=== PATIENT | male | born 1995 | race American Indian/Alaskan Native ===

== ENCOUNTER 2019-11-25 03:31 | Emergency (ER) | payer OTHER ==
[2019-11-25 04:46] VITALS: BP 157/79
[2019-11-25] MEDS ORDERED: HYDROcodone/ACETAMINOPHEN 10-325MG TAB PO ONE (07:19)
--- NOTE | 2019-11-25 07:33 | Emergency Department Report ---
ED Fall HPI - General Chief Complaint: Fall Stated Complaint: SLIP AND FALL Time Seen by Provider: 11/25/19 07:19 Source: patient Mode of arrival: Ambulatory - History of Present Illness Initial Comments: This is a 24-year-old male nontoxic, well nourished in appearance, no acute signs of distress presents to the ED with c/o of acute headache, neck pain, and bilateral shoulder pain s/p trip and fall that occurred this morning. Patient stated he fell backwards onto his head and neck area and shoulders but denies any other injuries or trauma. Patient that he had a brief loss of consciousness.. Patient describes headache as diffuse with level of 8 out of 10. Patient denies thunderclap headache. Patient denies any radiation of pain. Patient denies any visual changes. Patient denies worse headache. Patient denies any numbness, tingling, fever, chills, nausea, vomiting, chest pain, shortness of breath, stiff neck. Patient denies facial drooping or one sided weakness. Patient denies any radiation of pain. Patient denies any allergies. Patient denies significant past medical history. MD Complaint: fall -: This morning Fall From: standing Place Fall Occurred: work Loss of Consciousness: yes Prolonged Down Time?: no Symptoms Prior to Fall: none Location: head, neck Location - Extremities: Left: Shoulder, Right: Shoulder Severity: mild Severity scale (0 -10): 8 Quality: aching Context: tripped/slipped Associated Symptoms: headache, neck pain. denies: numbness, weakness, chest paint, shortness of breath, abdominal pain, hematuria, unable to walk, lightheaded, vertigo, confusion - Related Data Previous Rx's Medication Instructions Recorded Last Taken Type Acetaminophen/Codeine [Tylenol 1 tab PO Q6H PRN #12 tab 11/25/19 Unknown Rx /Codeine # 3 tab] Allergies Allergy/AdvReac Type Severity Reaction Status Date / Time No Known Allergies Allergy Unverified 11/25/19 04:11 ED Review of Systems ROS: Stated complaint: SLIP AND FALL Other details as noted in HPI Constitutional: denies: chills, fever Eyes: denies: eye pain, eye discharge, vision change ENT: denies: ear pain, throat pain Respiratory: denies: cough, shortness of breath, wheezing Cardiovascular: denies: chest pain, palpitations Endocrine: no symptoms reported Gastrointestinal: denies: abdominal pain, nausea, diarrhea Genitourinary: denies: urgency, dysuria Musculoskeletal: denies: back pain, joint swelling, arthralgia Skin: denies: rash, lesions Neurological: headache. denies: weakness, paresthesias Psychiatric: denies: anxiety, depression Hematological/Lymphatic: denies: easy bleeding, easy bruising ED Past Medical Hx - Past Medical History Previous Medical History?: Yes Hx Asthma: Yes - Surgical History Past Surgical History?: No - Social History Smoking Status: Never Smoker Substance Use Type: None - Medications Home Medications: Home Medications Medication Instructions Recorded Confirmed Last Taken Type Acetaminophen/Codeine [Tylenol 1 tab PO Q6H PRN #12 tab 11/25/19 Unknown Rx /Codeine # 3 tab] ED Physical Exam - General Limitations: No Limitations General appearance: alert, in no apparent distress - Head Head exam: Present: atraumatic, normocephalic - Eye Eye exam: Present: normal appearance, PERRL, EOMI - Neck Neck exam: Present: normal inspection, full ROM. Absent: tenderness, meningi smus, lymphadenopathy - Respiratory Respiratory exam: Present: normal lung sounds bilaterally. Absent: respiratory distress, wheezes, rales, rhonchi, stridor, chest wall tenderness, accessory muscle use, decreased breath sounds, prolonged expiratory - Cardiovascular Cardiovascular Exam: Present: regular rate, normal rhythm, normal heart sounds. Absent: bradycardia, tachycardia, irregular rhythm, systolic murmur, diastolic murmur, rubs, gallop - GI/Abdominal GI/Abdominal exam: Present: soft. Absent: distended, tenderness - Extremities Exam Extremities exam: Present: normal inspection, full ROM, tenderness, normal capillary refill. Absent: joint swelling - Expanded Upper Extremity Exam Left General: Present: normal inspection (bilateral exam) Shoulder Exam: Present: normal inspection (bilateral exam), full ROM (bilateral exam), tenderness (bilateral exam). Absent: swelling, abrasion, laceration, ecchymosis, deformity, crepidus, dislocation, erythema, tenderness over AC joint Upper Arm exam: Present: normal inspection (bilateral exam), full ROM (bilateral exam). Absent: tenderness, swelling Elbow exam: Present: normal inspection (bilateral exam), full ROM (bilateral exam). Absent: tenderness, swelling Forearm Wrist exam: Present: normal inspection (bilateral exam), full ROM (bilateral exam). Absent: tenderness, swelling Hand Wrist exam: Present: normal inspection (bilateral exam), full ROM (bilateral exam). Absent: tenderness, swelling Vascular: Present: vascular compromise (bilateral exam), normal capillary refill (bilateral exam) - Back Exam Back exam: Present: normal inspection, full ROM, paraspinal tenderness (cervical paraspinal area). Absent: tenderness, CVA tenderness (R), CVA tenderness (L), muscle spasm, vertebral tenderness, rash noted - Neurological Exam Neurological exam: Present: alert, oriented X3, normal gait - Expanded Neurological Exam Expanded Patient oriented to: Present: person, place, time Cranial nerves: EOM's Intact: Normal, Facial Sensation: Normal Cerebellar function: Finger to Nose: Normal Upper motor neuron: Pronator Drift: Normal, Sensory Extinction: Normal Motor strength exam: RUE: 5, LUE: 5, RLE: 5, LLE: 5 Best Eye Response ([place]): (4) open spontaneously Best Motor Response ([place]): (6) obeys commands Best Verbal Response ([place]): (5) oriented [place] Total: 15 - Psychiatric Psychiatric exam: Present: normal affect, normal mood - Skin Skin exam: Present: warm, dry, intact, normal color. Absent: rash ED Course Vital Signs 11/25/19 11/25/19 11/25/19 03:36 08:09 08:11 Temperature 98.0 F Pulse Rate 86 Respiratory 18 18 18 Rate Blood Pressure 157/79 O2 Sat by Pulse 97 98 Oximetry - Reevaluation(s) Reevaluation #1: 11/25/19 07:32 Patient is speaking in full sentences with no signs of distress noted. ED Medical Decision Making - Medical Decision Making 24-year-old male that presents with cervical strain, head contusion and bilateral shoulder strain. Patient is stable and was examined by me. CT scan and x-rays has been obtained and dictated by radiologist unremarkable. Patient is notified of the results with no questions noted by the patient. Patient did receive [place] for pain which he stated symptoms are improving subsided. Patient stated family member will drive patient home after discharge due to possible drowsiness. Patient was instructed to Follow-up with a primary care doctor in 3-5 days or if symptoms worsen and continue return to emergency room as soon as possible. At time of discharge, the patient does not seem toxic or ill in appearance. No acute signs of distress noted. Patient agrees to discharge treatment plan of care. No further questions noted by the patient. Critical care attestation.: If time is entered above; I have spent that time in minutes in the direct care of this critically ill patient, excluding procedure time. ED Disposition Clinical Impression: Head contusion Qualifiers: Encounter type: initial encounter Contusion of head detail: scalp Qualified Code(s): S00.03XA - Contusion of scalp, initial encounter Fall Qualifiers: Encounter type: initial encounter Qualified Code(s): W19.XXXA - Unspecified fall, initial encounter Cervical muscle strain Qualifiers: Encounter type: initial encounter Qualified Code(s): S16.1XXA - Strain of muscle, fascia and tendon at neck level, initial encounter Shoulder strain Qualifiers: Encounter type: initial encounter Laterality: unspecified laterality Qualified Code(s): S46.919A - Strain of unspecified muscle, fascia and tendon at shoulder and upper arm level, unspecified arm, initial encounter Disposition: DC- TO HOME OR SELFCARE Is pt being admited?: No Does the pt Need Aspirin: No Condition: Stable Instructions: Muscle Strain (ED), RICE Therapy (ED), Acetaminophen/Codeine (By mouth) Additional Instructions: Follow-up with a primary care doctor in 3-5 days or if symptoms worsen and continue return to emergency room as soon as possible. Do not operate any machinery while taking Tylenol with codeine as this may cause drowsiness. Prescriptions: Acetaminophen/Codeine [Tylenol /Codeine # 3 tab] 1 tab PO Q6H PRN #12 tab PRN Reason: Pain , Severe (7-10) Referrals: PRIMARY CAREMD [Primary Care Provider] - 3-5 Days NAHID NEVILLE MD [Staff Physician] - 3-5 Days [facility] [Outside] - 3-5 Days Forms: Work/School Release Form(ED)
--- NOTE | 2019-11-25 08:06 | XRay Report ---
RIGHT SHOULDER, 3 VIEWS INDICATION / CLINICAL INFORMATION: pain s./p fall. COMPARISON: None available. FINDINGS: No fracture or dislocation. No significant degenerative change. Visualized right lung and right ribs are unremarkable. IMPRESSION: Negative. Signer Name: Selena Mtz MD Signed: 11/25/2019 8:02 AM Workstation Name: [id number]
--- NOTE | 2019-11-25 08:13 | Cat Scan Report ---
CT head/brain wo con INDICATION / CLINICAL INFORMATION: headache/neck pain s/p fall. TECHNIQUE: Axial CT imaging of the brain was obtained without contrast. Coronal and sagittal reformatted imaging obtained and reviewed. All CT scans at this location are performed using CT dose reduction for ALAR A by means of automated exposure control. COMPARISON: None available. FINDINGS: No intracranial hemorrhage, mass, or midline shift is present. The ventricular system and basilar cis terns are unremarkable. No extra-axial fluid collection or suggestion of acute territorial infarction is present. The visualized paranasal sinuses and mastoid air cells are well aerated and clear. No calvarial abnor mality. IMPRESSION: 1. Negative noncontrasted head CT scan. Signer Name: Selena Mtz MD Signed: 11/25/2019 8:08 AM Workstation Name: [id number]
--- NOTE | 2019-11-25 08:21 | Cat Scan Report ---
CT cervical spine wo con INDICATION / CLINICAL INFORMATION: headache/neck pain s/p fall. TECHNIQUE: Axial CT imaging of the cervical spine was obtained without contrast. Coronal and sagittal reformatte d imaging obtained and reviewed. All CT scans at this location are performed using CT dose reduction for ALARA by means of automated exposure control. COMPARISON: None available. FINDINGS: No cervical spine fracture or traumatic malalignment is noted. Vertebral body heights are maintained. No significant degenerative change. Surrounding paravertebral soft tissues are unremarkable. Visualized lung apices are clear. IMPRESSION: 1. No cervical spine fracture or traumatic malalignment is present. Signer Name: Selena Mtz MD Signed: 11/25/2019 8:16 AM Workstation Name: [id number]
== END 2019-11-25 08:36 | disposition home or self-care (01) ==
LOC: ED 03:31
DX: S46.919A Strain of unspecified muscle, fascia and tendon at shoulder and upper arm level, unspecified arm, initial encounter (principal); S16.1XXA Strain of muscle, fascia and tendon at neck level, initial encounter; S00.03XA Contusion of scalp, initial encounter; J45.909 Unspecified asthma, uncomplicated; W01.0XXA Fall on same level from slipping, tripping and stumbling without subsequent striking against object, initial encounter; Y93.89 Activity, other specified; Y92.89 Other specified places as the place of occurrence of the external cause; Y99.8 Other external cause status
CPT/HCPCS: 70450; 72125